=== PATIENT | male | born 1960 | race Caucasian/White ===

== ENCOUNTER 2016-10-28 06:54 | Day surgery (SDC) | payer OTHER ==
[~2016-10-28] VITALS: Ht 170.2 cm; Wt 80.9 kg
[~2016-10-28 06:54] MED LIST: FOLI-49 PO; MESA400T9 PO
[2016-10-28 07:54] VITALS: BP 163/93; PULSE 76; RESP 18; Ht 170.2 cm; Wt 80.9 kg
[2016-10-28 09:02] VITALS: BP 132/87; PULSE 74; RESP 18
[2016-10-28] MEDS ORDERED: FENTAnyl 50 MCG/ML VIAL ONE (09:07)
[2016-10-28] MEDS ORDERED: MIDAZOLAM 1 MG/ML 2 ML INJ ONE ×2 (09:07)
--- NOTE | 2016-10-28 10:36 | GILP ---
DATE OF PROCEDURE: 10/28/2016 NAME OF PROCEDURE: Colonoscopy and biopsy. SURGEON: Chon Loya MD PREOPERATIVE DIAGNOSES: Ulcerative colitis. POSTOPERATIVE DIAGNOSES: 1. Colonoscopy all the way to the cecum. 2. Poor prep making the exam very suboptimal. 3. Colitis with ulcerations and inflammation, mostly in the sigmoid colon. 4. Transverse colon and right colon have mild inflammation. 5. Pseudopolyps. 6. Multiple biopsies were taken from various segments of the colon for histopathology. 7. Internal hemorrhoids. INDICATION FOR THE PROCEDURE: Mr. Dewey Trinh is a 56-year-old male patient who has history o f longstanding ulcerative colitis. The patient was scheduled for colonoscopy and biopsy. The procedure and possible complications were well explained to the patient, he understood and conse nted to the procedure. DESCRIPTION OF PROCEDURE: Under the influence of fentanyl and Versed, the colonoscope was carefully introduced in the rectum and under direct vision, it was advanced all the way to the cecum. FINDINGS: The patient had poor prep making the exam very suboptimal. The patient had colitis with ulcerations, mostly in the sigmoid colon and he had mild inflammation i n the transverse colon as well as the right colon. The patient was noted to have multiple pseudopol yps. Random biopsies were taken from various segments of the colon. The patient also had internal hemorrhoids. He tolerated the procedure very well and there was no complication from the procedure. At the end o f the procedure, he was awake with stable vital signs and he was discharged home to the care of his family. IMPRESSION: Please see postoperative diagnosis. PLAN: 1. Await histopathology report. 2. Repeat colonoscopy and biopsy in 1 year. Dictated By: CHON TATE/JERRY Conf#: [id number] DID#: [id number] CC: CHON LOYA MD;*EndCC*
== END 2016-10-28 11:13 | disposition home or self-care (01) ==
LOC: GIL 06:54
PROVIDERS: ATTEND Internal Medicine Gastroenterology
DX: K51.90 Ulcerative colitis, unspecified, without complications (principal); K64.8 Other hemorrhoids
CPT/HCPCS: 45380; 88305; J2250; J3010; Z7610

== ENCOUNTER 2017-10-25 06:16 | Day surgery (SDC) | END 2017-10-25 13:13 | disposition home or self-care (01) ==